=== PATIENT | male | born 1980 | race Hispanic/Latino ===

== ENCOUNTER 2022-12-26 07:13 | Day surgery (SDC) | payer BC ==
[2022-12-23 14:21] VITALS: BP 167/84; PULSE 60; RESP 19
[~2022-12-26] VITALS: Ht 182.9 cm; Wt 183.3 kg
[2022-12-26] VITALS (10 sets, daily range): BP systolic 123–164; BP diastolic 59–92; PULSE 64–85; RESP 12–18
[~2022-12-26 07:13] MED LIST: FERS325 PO
[2022-12-26] MEDS ORDERED: 0.9%NACL 1000ML 1,000 ML IV ONE (09:03)
[2022-12-26] MEDS ORDERED: PROPOFOL 10 MG/ML 20ML VIAL IV ONE (10:10)
[2022-12-26] MEDS ORDERED: LIDOCAINE HCL 400MG/20ML VIAL ONE (10:10)
== END 2022-12-26 11:45 | disposition home or self-care (01) ==
LOC: DAH 07:13
PROVIDERS: ATTEND Internal Medicine Gastroenterology
DX: K92.1 Melena (principal); K51.40 Inflammatory polyps of colon without complications; R14.0 Abdominal distension (gaseous); K64.0 First degree hemorrhoids; E66.01 Morbid (severe) obesity due to excess calories; Z68.43 Body mass index [BMI] 50.0-59.9, adult; Z82.49 Family history of ischemic heart disease and other diseases of the circulatory system; Z83.3 Family history of diabetes mellitus; Z82.5 Family history of asthma and other chronic lower respiratory diseases; Z98.890 Other specified postprocedural states
CPT/HCPCS: 45380; J3490; J7030 ×2; J2704; A4620; A4215 ×2; A4223; A7002; A4222; A4221; A4663; A4606

== ENCOUNTER → 2024-07-09 | Outpatient (CLI) | payer BC | END | disposition home or self-care (01) | LOC: RAH 13:45 | PROVIDERS: ATTEND Internal Medicine | DX: R01.1 Cardiac murmur, unspecified (principal) | CPT/HCPCS: 93306 ==